=== PATIENT | female | born 1945 | race African-American/Black ===

== ENCOUNTER 2025-02-17 10:22 | Outpatient (REF) | payer SELFPAY ==
[2025-02-17 11:39] LABS: Anion Gap 14 (12-20); Blood Urea Nitrogen 35 mg/dL (9-16); Calcium 9.9 mg/dL (8.4-10.2); Carbon Dioxide 25 mmol/L (22-29); Chloride 106 mmol/L (96-108); Estimated Glomerular Filt Rate 29; Glucose Random 139 mg/dL (60-115); Potassium 4.1 mmol/L (3.3-5.1); Sodium 141 mmol/L (135-145)
[2025-02-17 11:55] LABS: TSH reflex Free T4 1.59 uIU/mL (0.32-4.0)
[2025-02-17 12:13] LABS: Folate 10.4 ng/mL (> or = 4.0); Vitamin B12 616 pg/mL (200-900)
--- OUTSIDE RECORDS SUMMARY | 2025-02-17 12:14 | XMS_ITS | Clinical Summary ---
Author Organization [facility] Address [address] [place] [address] Phone Care Team Providers Care Cissp Name Role Phone Linnea Guerrero MD Primary Care Provider [phone] Allergies Active Allergy Reactions Criticality Noted Date Comments Flu Vac 2015 (65 Up)-Mf59c(Pf) 10/05 Lisinopril Unknown 10/05/2024 Metoprolol Shortness of breath High 10/05/2024 Penicillins Hives,Rash Medium 10/03/2024 Medications famotidine (PEPCID) 20 mg tablet Take 1 tablet (20 mg total) by mouth 1 (one) time each day. 25 tablet 024 2024 Active Additional Information Patient taking differently:20 mg oralDaily PRN, heartburn, Reported on 12/24/2024 albuterol HFA (PROAIR HFA ; PROVENTIL HFA ; VENTOLIN HFA) 90 mcg/actuation inhaler Inhale 2 puffs by mouth every 6 (six) hours if needed for wheezing. Active aspirin 81 mg EC tablet Take 1 tablet (81 mg total) by mouth 1 (one) time each day. Active cholecalciferol (VITAMIN D-3) 50 mcg (2,000 unit) capsule Take 1 capsule (2,000 Units total) by mouth 1 (one) time each day. Active felodipine (PLENDIL) 5 mg 24 hr tablet Take 1 tablet (5 mg total) by mouth 1 (one) time each day. Active glipiZIDE (GLUCOTROL XL) 5 mg 24 hr tablet Take 1 tablet (5 mg total) by mouth 1 (one) time each day with breakfast. Active rosuvastatin (CRESTOR) 20 mg tablet Take 1 tablet (20 mg total) by mouth 1 (one) time each day. Active colchicine (MITIGARE) 0.6 mg capsule capsuleIndicati ons:Chronic gout of foot, unspecified cause, unspecified laterality Take 1 capsule (0.6 mg total) by mouth 1 (one) time each day if needed (gout flare). 30 capsule 1 Active losartan (COZAAR) 100 mg tabletIndicatio ns:Primary hypertension Take 1 tablet (100 mg total) by mouth 1 (one) time each day. 90 tablet 1 025 Active hydroCHLOROthia zide (HYDRODIURIL) 25 mg tabletIndicatio ns:Primary hypertension Take 1 tablet (25 mg total) by mouth 1 (one) time each day. 90 tablet 1 025 Active cranberry extract (Cranberry Concentrate) 500 mg capsule Take 500 mg by mouth 1 (one) time each day. Active mv, min #36-iron,carbon yl-FA (Geritol Complete) 16 mg iron- 0.38 mg tablet Take by mouth 1 (one) time each day. Active cyanocobalamin (VITAMIN B-12) 500 mcg tablet Take 1 tablet (500 mcg total) by mouth 1 (one) time each day. 024 2024 Discontinued atenoloL (TENORMIN) 50 mg tablet Take 1 tablet (50 mg total) by mouth 1 (one) time each day. 90 tablet 3 025 2024 Discontinued(S top Taking at Discharge) UNABLE TO FINDIndications :arthrits pain 800 mg 1 (one) time each day. Med Name: Acetaminophen 400mg two tablets daily 2024 Discontinued(S top Taking at Discharge) Active Problems Problem Noted Date Diagnosed Date Chest pain 01/23/2025 Right sided weakness 12/24/2024 Morbid obesity with BMI of 4 0.0-44.9, adult ([facility] V24, [facility] V28) 10/13/2024 Abdominal pain 10/05/2024 Osteoarthritis of both knees 07/21/2024 Vitamin D deficiency 12/11/2023 Rash 11/26/2019 Microalbuminuria 07/11/2019 Aortic atherosclerosis ([facility] V24) 07/11/2019 Diverticulosis 07/11/2019 Gout 07/11/2019 CKD (chronic kidney disease) stage 3, GFR 30-59 ml/min ([facility] V24, 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 ([facility] V24, [facility] V28) 05/20/2018 GERD (gastroesophageal reflux disease) 8 Hyperlipidemia 05/20/2018 Hypertension 05/20/2018 Tubular adenoma 05/20/2018 Type 2 diabetes mellitus wit h cataract ([facility] V24, [facility] V28) 05/20/2018 Cataract 04/01/2018 Allergic rhinitis 09/11/2017 Nephrolithiasis 05/09/2017 Osteoarthritis 05/10/2016 Overview (10/13/2024): Thoracic & Lumbar Spine, Elbow Internal hemorrhoids 09/07/2014 Encounters Date Type Department Care Team Description 01/23/2025 12:40 PM EDT - 01/24/2025 2:26 PM EDT Hospital Encounter [facility] [address] [place] [address] Toby Barnett MD Flores, Carlos M, MD Bell, Alistair A, MD Kela, Kashyap Devendrabhai, MD Chest pain, unspecified type (Primary Dx) Discharge Disposition: Home-Health Care [facility] 01/13/2025 Telephone Internal Medicine - [place] [address] [place] [address] Rita Blanca MD Referral (Fax requesting an insurance referral - endocrinology) 12/24/2024 7:44 AM EST - 12/25/2024 11:58 AM EST Hospital Encounter [facility] [address] [place] [id number] Rom Fuentes DO Sondhi, Vikram, MD Alam, Aroosa, MD Right sided weakness (Primary Dx); Vertigo; Primary hypertension; Aortic atherosclerosis ([facility] V24) Discharge Disposition: Home or Self Care 12/23/2024 9:45 AM EST Office Visit Internal Medicine - [place] [address] [place] [phone] Ayesha Aaron PA Type 2 diabetes mellitus with stage 3a chronic kidney disease, without long-term current use of insulin ([facility] V24, [facility] V28) (Primary Dx); Primary hypertension; Pure hypercholesterolemia; Obesity (BMI 30-39.9); Chronic gout of foot, unspecified cause, unspecified laterality; Memory disturbance 11/27/2024 6:58 AM EST - 11/27/2024 11:59 PM EST Hospital Encounter [facility] Ultrasound [address] [place] [phone] Personal history of urinary (tract) infections Discharge Disposition: Home or Self Care from Last 3 Months Surgical History Surgery Date Site/Laterality Comments TOTAL KNEE ARTHROPLASTY Bilateral PROCEDURE: HISTORICAL TOTAL KNEE REPLACE; COMMENT: right 2001, [facility] [place] [facility] 2003 PROCEDURE: HISTORICAL COLONOSCOPY; COMMENT: Normal Medical History Medical History Date Comments Allergic rhinitis 09/11/2017 DX:Allergic rh initis Cataract 04/01/2018 DX:Cataract 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 V24, [facility] V28) 05/20/2018 DX:Chronic obst ructive airway disease with asthma (HCC) CKD (chronic kidney disease) stage 3, GFR 30-59 ml/min ([facility] V24, [facility] V28) 09/17/2018 DX:CKD (chronic kidney disea se) stage 3, GFR 30-59 ml/min ([facility]) GERD (gastroesophageal reflux disease) 8 DX:GERD (gastroesophageal reflux disease) Hyperlipidemia 05/20/2018 DX:Hyperlipidemi a Hypertension 05/20/2018 DX:Hypertension Internal hemorrhoids 09/07/2014 DX:Internal hemorrhoids Nephrolithiasis 05/09/2017 DX:Nephrolithias is S/P knee replacement 09/17/2018 DX:S/P knee replacement Tubular adenoma 05/20/2018 DX:Tubular adeno ma Type 2 diabetes mellitus wit h cataract ([facility] V24, [facility] V28) 05/20/2018 DX:Type 2 diabetes mellitus with cataract (HCC) Type 2 diabetes mellitus wit h renal manifestations ([facility] V24, [facility] V28) 09/17/2018 DX:Type 2 diabetes mellitus with renal manifestations ([facility]) Gout DX:Gout Microalbuminuria 07/11/2019 DX:Microalbumin uria Aortic atherosclerosis ([facility] V24) 07/11/2019 DX:Aortic atherosclerosis ([facility]) Diverticulosis 07/11/2019 DX:Diverticulosi s Osteoarthritis 05/10/2016 DX:Osteoarthriti s; COMMENT: Thoracic & Lumbar Spine, Elbow Morbid obesity with BMI of 4 0.0-44.9, adult ([facility] V24, [facility] V28) DX:Morbid obesity wit h BMI of 40.0-44.9, adult ([facility]) Vitamin D deficiency DX:Vitamin D deficiency Family History Medical History Relation Name Comments Coronary artery disease Mother Relation Name Status Comments Father Mother Social History Tobacco Use Types Packs/Day Years Used Date Smoking Tobacco: Former Cigarettes Smokeless Tobacco: Never Alcohol Use Standard Drinks/Week Comments No 0 (1 standard drink = 0.6 oz pur e alcohol) Housing Instability Answer Date Recorde d Are you worried that in the next 2 months you may not have stable housing? Patient declined 12/25/2024 Food Access & Nutrition Answer Date Rec orded Do you have access to a vari ety of food including fruits and vegetables? Patient declined 12/25/2024 Health Literacy Answer Date Recorded How often do you need to hav e someone help you when you read instructions, pamphlets, or other written material from your doctor or pharmacy? Patient declined 12/25/2024 Caregiver: How often do you need to have someone help you when you read instructions, pamphlets, or other written material from your doctor or pharmacy? Not on file 025 Financial Risk Answer Date Recorded How hard is it for you to pa y for the very basics like food, housing, medical care, and air conditioning / heating? Somewhat hard 12/25/2024 Transportation Answer Date Recorded Has the lack of transportati on kept you from meetings, work, or from getting things needed for daily living? Patient declined 12/25/2024 Has the lack of transportati on kept you from medical appointments or from getting medications? Patient declined 12/25/2024 Social Isolation Answer Date Recorded How often do you feel lonely or isolated from those around you? Patient declined 12/25/2024 Food Risk Answer Date Recorded Within the past 12 months we worried whether our food would run out before we got money to buy more. Never true 12/25/2024 Within the past 12 months th e food we bought just didn't last and we didn't have money to get more. Never true 12/25/2024 Dependent Care Answer Date Recorded Do you need help finding or paying for care for your loved ones. For example, child monitor or elderly care for an older adult? Patient declined 12/25/2024 Education Answer Date Recorded Do you think completing more education or training, like finishing a GED, going to college, or learning a trade, would be helpful for you? Patient declined 12/25/2024 Employment and Income Answer Date Recor ded During the last four weeks, have you been actively looking for work? Patient declined 12/25/2024 Living Situation Answer Date Recorded What is your living situation? 0 12/25/2024 Interpersonal Safety Answer Date Record ed Physical Abuse 01/24/2025 Verbal Abuse 01/24/2025 Comments Unknown Sex and Gender Information Value Date Recorded Sex Assigned at Female 09/15/2024 2:07 PM EST Legal Sex Female 8:02 PM EST Gender Identity Female 09/15/2024 2:07 PM EST Sexual Orientation Straight 09/15/2024 2: 07 PM EST Obstetrics History Last Filed Vital Signs Vital Sign Reading Time Taken Comments Blood Pressure 146/54 01/24/2025 11:18 AM EDT Pulse 57 01/24/2025 11:18 AM EDT Temperature 36.8 ??C (98.3 ??F) 01/24/2025 11:18 AM E DT Respiratory Rate 14 01/24/2025 11:18 AM EDT Oxygen Saturation 100% 01/24/2025 11:18 AM EDT Inhaled Oxygen Concentration - - Weight 99.8 kg (220 lb) 01/23/2025 11:10 AM EDT Height 162.6 cm (5' 4 ) 01/23/2025 11:10 AM EDT Body Mass Index 37.76 01/23/2025 11:10 AM EDT Plan of Treatment Upcoming Encounters Date Type Department Care Team (Late st Contact Info) Description 02/25/2025 8:30 AM EDT Office Visit Internal Medicine - [facility] [address], [place] [phone] Linnea Guerrero MD [address], [place] Health Maintenance Due Date Last Done Comments Diabetes: Annual Foot Exam 1955 Diabetes: Annual Retina Eye Exam 1955 DTaP,Tdap,and Td Vaccines (1 - Tdap) 1963 Pneumococcal Vaccine: 50+ Years (1 of 2 - PCV) 1963 Zoster Vaccines (1 of 2) 1994 RSV Immunization Adult Patients (1 - 1-dose 75+ series) 2019 Osteoporosis Screening (Bone Density Screening) 09/23/2022 COVID-19 Vaccine ( season) 2024 12/31/2021, 07/15/2021, 06/24/2021 Diabetes: Annual Urine Albumin-Creatinine Ratio (uACR) 12/07/2024 12/07/2023 Influenza Vaccine (Season Ended) 2025 Diabetes: Blood Sugar Control Test (HGBA1C) 06/26/2025 12/24/2024, 06/10/2024, 06/10/2024 Depression Screening 08/22/2025 08/22/2024 Medicare Annual Wellness Visit 08/22/2025 08/22/2024 Social Influencers of Health Screening 12/25/2025 12/25/2024 Diabetes: Annual GFR (Glomerular Filtration Rate) 01/24/2026 01/24/2025, 01/23/2025, 12/25/2024, Additional history exists Falls Risk Assessment 01/24/2026 01/24/2025, 08/22/ 024 Hypertension/CHF/CAD Annual BMP Blood Test 01/24/2026 01/24/2025, 01/23/2025, 12/25/2024, Additional history exists Cholesterol Screening (Lipid Panel) 12/24/2029 12/24/2024, 12/07/2023 HIB Vaccines Aged Out No longer eligi ble based on patient's age to complete this topic HPV Vaccines Aged Out No longer eligi ble based on patient's age to complete this topic Hepatitis A Vaccines Aged Out No long er eligible based on patient's age to complete this topic Hepatitis B Vaccines Aged Out No long er eligible based on patient's age to complete this topic IPV Vaccines Aged Out No longer eligi ble based on patient's age to complete this topic MMR Vaccines Aged Out No longer eligi ble based on patient's age to complete this topic Meningococcal ACWY Vaccine Aged Out N o longer eligible based on patient's age to complete this topic Meningococcal B Vaccine Aged Out No l onger eligible based on patient's age to complete this topic RSV Immunization Patients Under 20 months Aged Out No longer eligible based on patient's age to complete this topic Varicella Vaccines Aged Out No longer eligible based on patient's age to complete this topic Procedures Procedure Name Priority Date/Time Associated Diagnosis Comments ECG ANNOTATED 01/26/2025 POCT GLUCOSE BLOOD Routine 01/24/2025 11 :19 AM EDT POCT GLUCOSE BLOOD Routine 01/24/2025 7: 55 AM EDT CBC WITH AUTO DIFFERENTIAL Routine 01/24/2025 5:26 AM EDT CBC AND DIFFERENTIAL Routine 01/24/2025 5:26 AM EDT MAGNESIUM Routine 01/24/2025 5:26 AM EDT BASIC METABOLIC PANEL Routine 01/24/2025 5:26 AM EDT POCT GLUCOSE BLOOD Routine 01/23/2025 9: 49 PM EDT POCT GLUCOSE BLOOD Routine 01/23/2025 6: 11 PM EDT POCT GLUCOSE BLOOD Routine 01/23/2025 5: 24 PM EDT ECG 12-LEAD STAT 01/23/2025 1:05 PM EDT TROPONIN I HIGH SENSITIVITY STAT 01/23/2025 1:04 PM EDT XR CHEST 2 VIEWS STAT 01/23/2025 12:0 0 PM EDT CBC WITH AUTO DIFFERENTIAL STAT 01/23/2025 11:28 AM EDT B-TYPE NATRIURETIC PEPTIDE STAT 01/23/2025 11:28 AM EDT MAGNESIUM STAT 01/23/2025 11:28 AM EDT LIPASE STAT 01/23/2025 11:28 AM EDT COMPREHENSIVE METABOLIC PANEL STAT 01/23/2025 11:28 AM EDT CBC AND DIFFERENTIAL STAT 01/23/2025 11:28 AM EDT TROPONIN I HIGH SENSITIVITY STAT 01/23/2025 11:28 AM EDT ECG 12-LEAD STAT 01/23/2025 10:56 AM EDT ECG OUTSIDE 01/23/2025 ECG OUTSIDE 01/23/2025 EXTERNAL XRAY REPORT 01/23/2025 ECG ANNOTATED 12/29/2024 TRANSTHORACIC ECHOCARDIOGRAM (TTE) COMPLETE W/ CONTRAST Routine 12/25/2024 9:10 AM EST Right sided weakness Primary hypertension Aortic atherosclerosis (CMS/HCC V24) POCT GLUCOSE BLOOD Routine 12/25/2024 8: 23 AM EST BASIC METABOLIC PANEL Routine 12/25/2024 5:48 AM EST COMPLETE BLOOD COUNT Routine 12/25/2024 5:48 AM EST POCT GLUCOSE BLOOD Routine 12/24/2024 9: 23 PM EST POCT GLUCOSE BLOOD Routine 12/24/2024 5: 18 PM EST MR BRAIN WO CONTRAST Routine 12/24/2024 1:05 PM EST LIPID PANEL WITH REFLEX TO DIRECT LDL Routine 12/24/2024 9:58 AM EST HEMOGLOBIN A1C Routine 12/24/2024 9:58 AM EST XR CHEST 1 VIEW STAT 12/24/2024 9:20 AM EST POC GLUCOSE STAT 12/24/2024 8:13 AM EST POCT GLUCOSE BLOOD Routine 12/24/2024 8: 11 AM EST CBC WITH AUTO DIFFERENTIAL STAT 12/24/2024 8:08 AM EST ACTIVATED PARTIAL THROMBOPLASTIN TIME STAT 12/24/2024 8:08 AM EST PROTHROMBIN TIME WITH INR STAT 12/24/2024 8:08 AM EST BASIC METABOLIC PANEL STAT 12/24/2024 8:08 AM EST CBC AND DIFFERENTIAL STAT 12/24/2024 8:08 AM EST ECG 12-LEAD STAT 12/24/2024 8:[address] ANGIO HEAD/NECK STROKE WO AND/OR W CONTRAST STAT 12/24/2024 7:[address] HEAD STROKE WO CONTRAST STAT 12/24/2024 7:58 AM EST US RETROPERITONEAL COMPLETE Routine 11/27/2024 7:59 AM EST Personal history of urinary (tract) infections HM DEPRESSION SCREENING Routine 08/22/2024 FALLS RISK ASSESSMENT Routine 08/22/2024 URINE ALBUMIN CREATININE RATIO Routine 12/07/2023 from Last 3 Months or Most Recently Relevant to Health Maintenance Results * ECG-Annotated (01/26/2025) Only the most recent of2 resultswithin the time period is included. us Provider Onbase MD ECG ORDERABLES Final Result * POCT Glucose, blood (01/24/2025 11:19 AM EDT) Only the most recent of9 resultswithin the time period is included. [facility] Glucose POCT 90 70 - 100 mg/dL 01/24/2025 11:19 AM EDT [facility] Blood Capillary blood specimen / Unknown 01/24/2025 11:19 AM EDT 01/24/2025 11:20 AM EDT Arun Meraz MD LAB POINT O F CARE TEST DOCKED DEVICE UNSOLICITED RESULTS Final Result [facility] [address] [place] [address], [place] [phone] * (ABNORMAL) CBC auto differential (01/24/2025 5:26 AM EDT) Only the most recent of3 resultswithin the time period is included. [facility] WBC 5.5 4.8 - 10.8 K/mcL LAB HEMETOLOGY METHOD 01/24/2025 6:50 AM EDT [facility] RBC 4.10 3.80 - 4.80 M/mcL LAB HEMETOLOGY METHOD 01/24/2025 6:50 AM EDT [facility] Hemoglobin 11.0(L) 11.5 - 16.0 g/dL LAB HEMETOLOGY METHOD 01/24/2025 6:50 AM EDT [facility] Hematocrit 35.5 35.0 - 47.0 % LAB HEMETOLOGY METHOD 01/24/2025 6:50 AM T [facility] MCV 86.0 79.0 - 98.0 FL LAB HEMETOLOGY METHOD 01/24/2025 6:50 AM [facility] MCH 26.6(L) 27.0 - 32.0 pcg LAB HEMETOLOGY METHOD 01/24/2025 6:50 AM T [facility] MCHC 31.0(L) 32.0 - 37.0 g/dL LAB HEMETOLOGY METHOD 01/24/2025 6:50 AM [facility] RDW 17.9(H) 11.0 - 15.0 % LAB HEMETOLOGY METHOD 01/24/2025 6:50 AM [facility] Platelets 270 130 - 400 K/mcL LAB HEMETOLOGY METHOD 01/24/2025 6:50 AM [facility] MPV 9.8 7.0 - 11.0 FL LAB HEMETOLOGY METHOD 01/24/2025 6:50 AM [facility] NRBC 0.0 <1.0 % LAB HEMETOLOGY METHOD 01/24/2025 6:50 AM [facility] NRBC Absolute 0.00 <0.10 K/mcL LAB HEMETOLOGY METHOD 01/24/2025 6:50 AM [facility] Neutrophils Relative 65.8 % LAB HEMETOLOGY METHOD 01/24/2025 6:50 AM [facility] Lymphocytes Relative 22.1 % LAB HEMETOLOGY METHOD 01/24/2025 6:50 AM [facility] Monocytes Relative 8.9 % LAB HEMETOLOGY METHOD 01/24/2025 6:50 AM [facility] Eosinophils Relative 2.6 % LAB HEMETOLOGY METHOD 01/24/2025 6:50 AM EDT [facility] Basophils Relative 0.4 % LAB HEMETOLOGY METHOD 01/24/2025 6:50 AM EDT [facility] Immature Granulocytes Relative 0.2 % LAB HEMETOLOGY METHOD 01/24/2025 6:50 AM EDT [facility] Neutrophils Absolute 3.61 1.50 - 7.00 K/mcL LAB HEMETOLOGY METHOD 01/24/2025 6:50 AM EDT [facility] Lymphocytes Absolute 1.21 1.00 - 5.00 K/mcL LAB HEMETOLOGY METHOD 01/24/2025 6:50 AM EDT [facility] Monocytes Absolute 0.49 0.20 - 1.00 K/mcL LAB HEMETOLOGY METHOD 01/24/2025 6:50 AM EDT [facility] Eosinophils Absolute 0.14 0.00 - 0.50 K/mcL LAB HEMETOLOGY METHOD 01/24/2025 6:50 AM EDT [facility] Basophils Absolute 0.02 0.00 - 0.20 K/mcL LAB HEMETOLOGY METHOD 01/24/2025 6:50 AM EDT [facility] Immature Granulocytes Absolute 0.01 0.00 - 0.03 K/mcL LAB HEMETOLOGY METHOD 01/24/2025 6:50 AM EDT [facility] Blood Venous blood specimen / Unknown Venipuncture / Unknown 01/24/2025 5:26 AM EDT 01/24/2025 6:16 AM EDT us Rock Junior MD LAB BLOOD ORDERABLES Final Re sult [facility] [address] [place] [address], * Magnesium (01/24/2025 5:26 AM EDT) Only the most recent of2 resultswithin the time period is included. Magnesium 2.1 1.9 - 2.6 mg/dL LAB CHEMISTRY METHOD 01/24/2025 7:05 AM [facility] Blood Venous blood specimen / Unknown Venipuncture / Unknown 01/24/2025 5:26 AM EDT 01/24/2025 6:16 AM EDT Rock Junior MD LAB BLOOD ORDERABLES Final Re sult [facility] [address] [place] [address], * (ABNORMAL) Basic metabolic panel (01/24/2025 5:26 AM EDT) Only the most recent of3 resultswithin the time period is included. Pathologist [facility] Sodium 140 133 - 145 mmol/L LAB CHEMISTRY METHOD 01/24/2025 7:05 AM [facility] Potassium 4.1 3.5 - 5.5 mmol/L LAB CHEMISTRY METHOD 01/24/2025 7:05 AM [facility] Chloride 104 96 - 110 mmol/L LAB CHEMISTRY METHOD 01/24/2025 7:05 AM [facility] CO2 28 21 - 32 mmol/L LAB CHEMISTRY METHOD 01/24/2025 7:05 AM [facility] Anion Gap 8 3 - 11 LAB CHEMISTRY METHOD 01/24/2025 7:05 AM [facility] Glucose 69(L) 70 - 100 mg/dL LAB CHEMISTRY METHOD 01/24/2025 7:05 AM [facility] BUN 29(H) 5 - 25 mg/dL LAB CHEMISTRY METHOD 01/24/2025 7:05 AM [facility] Creatinine 1.22(H) 0.50 - 1.10 mg/dL LAB CHEMISTRY METHOD 01/24/2025 7:05 AM EDT [facility] eGFR 45(L) >=60 mL/min/1. 73m2 LAB CHEMISTRY METHOD 01/24/2025 7:05 AM EDT [facility] Comment:Calculation based on the??Chronic Kidney Disease Epidemiology Collaboration (CKD-EPI) equation refit??without adjustment for race. BUN/Creatinine Ratio 23.8 LAB CHEMISTRY METHOD 01/24/2025 7:05 AM EDT [facility] Calcium 9.6 8.5 - 10.5 mg/dL LAB CHEMISTRY METHOD 01/24/2025 7:05 AM EDT [facility] Blood Venous blood specimen / Unknown Venipuncture / Unknown 01/24/2025 5:26 AM EDT 01/24/2025 6:16 AM EDT Rock Junior MD LAB BLOOD ORDERABLES Final Re sult [facility] [address] [place] [address], [place] [phone] * ECG 12 lead (01/23/2025 1:05 PM EDT) Only the most recent of3 resultswithin the time period is included. Ventricular Rate ECG 43 BPM G[facility] Atrial Rate 43 BPM GEM[facility] P-R Interval 150 ms GEMUSE QRS Duration 90 ms GEMUSE Q-T Interval 462 ms GEMUSE QTc 390 ms GEMUSE P Wave [place] 36 degrees GEMUSE R [place] 17 degrees GEMUSE T [place] 18 degrees GEMUSE ECG Interpretation Marked sinus bradycardia Abnormal ECG When compared with ECG of 23-JAN-2025 10:56, (unconfirmed) No significant change was found Confirmed by ELLE GARCIA ([id number]) on 01/25/2025 9:40:21 AM GEMUSE 01/23/2025 1:05 PM EDT 01/25/2025 9:40 AM EDT us Toby Barnett MD ECG ORDERABLES Final Result Performing Organization Address City/[facility] [address]/ZIP Co de Phone Number GEMUSE * Troponin I high sensitivity (01/23/2025 1:04 PM EDT) Only the most recent of2 resultswithin the time period is included. High Sensitivity Troponin I 32 <=54 ng/L LAB CHEMISTRY METHOD 01/23/2025 1:58 PM EDT [facility] Blood Venous blood specimen / Unknown Venipuncture / Unknown 01/23/2025 1:04 PM EDT 01/23/2025 1:27 PM EDT Narrative [facility] - 01/23/2025 1:58 PM EDT High levels of biotin in samples may falsely decrease hsTroponin values. ??Use caution when interpreting hsTroponin results in patients taking biotin who exhibit renal impairment (eGFR <60) or in patients taking more than 20 mg/day of biotin. Toby Barnett MD LAB BLOOD ORDERABLES Final Resu lt Performing Organization Address [facility] Street/[facility] Co de Phone Number [facility] [address] [place] [address], [place] [phone] * XR Chest 2 Views (01/23/2025 12:00 PM EDT) Anatomical Region Laterality Modality Body Radiographic Jacinta ging 01/23/2025 12:1 9 PM EDT Impressions 01/23/2025 12:20 PM EDT No acute cardiopulmonary findings. -------- FINAL REPORT -------- Dictated By: Calin Jamil Dictated Date: 01/23/2025 12:19 ET Assigned Physician: Calin Jamil Reviewed and Electronically Signed By: Calin Jamil Signed Date: 01/23/2025 12:20 ET Workstation ID: [id number] Transcribed By: Self Edit Transcribed Date: 01/23/2025 12:19 ET Narrative 01/23/2025 12:20 PM EDT PROCEDURE: PA and lateral radiographs of the chest. HISTORY: chest pain. COMPARISON: 12/24/2024. FINDINGS: Small round density projected over the upper right lung, which could represent a calcified granuloma or a bone island in an overlying rib. ??Lungs otherwise clear. ??Mild cardiomegaly. ??Atherosclerotic calcification of the aorta. ??No pulmonary edema, pleural effusion, or pneumothorax. ??Degenerative changes of the spine and shoulders. Procedure Note Calin Jamil MD - 01/23/2025 PROCEDURE: PA and lateral radiographs of the chest. HISTORY: chest pain. COMPARISON: 12/24/2024. FINDINGS: Small round density projected over the upper right lung, which couldrepresent a calcified granuloma or a bone island in an overlying rib.Lungs otherwise clear. Mild cardiomegaly. Atherosclerotic calcificationof the aorta. No pulmonary edema, pleural effusion, or pneumothorax.Degenerative changes of the spine and shoulders. IMPRESSION: No acute cardiopulmonary findings. -------- FINAL REPORT -------- Dictated By: Calin Jamil Dictated Date: 01/23/2025 12:19 ET Assigned Physician: Calin Jamil Reviewed and Electronically Signed By: Calin Jamil Signed Date: 01/23/2025 12:20 ET Workstation ID: [id number] Transcribed By: Self Edit Transcribed Date: 01/23/2025 12:19 ET Toby Barnett MD IMG XR PROCEDURES Final Result * B-type natriuretic peptide (01/23/2025 11:28 AM EDT) BNP 56 <=100 pcg/mL LAB CHEMISTRY METHOD 01/23/2025 12:37 PM EDT [facility] Blood Venous blood specimen / Unknown Venipuncture / Unknown 01/23/2025 11:28 AM EDT 01/23/2025 11:44 AM EDT Toby Barnett MD LAB BLOOD ORDERABLES Final Resu lt [facility] [address] [place] [address], [place] [phone] * Lipase (01/23/2025 11:28 AM EDT) [facility] Lipase 66 13 - 75 unit/L LAB CHEMISTRY METHOD 01/23/2025 12:33 PM [facility] Blood Venous blood specimen / Unknown Venipuncture / Unknown 01/23/2025 11:28 AM EDT 01/23/2025 11:44 AM EDT us Toby Barnett MD LAB BLOOD ORDERABLES Final Resu lt [facility] [address] [place] [address], [place] [phone] * (ABNORMAL) Comprehensive metabolic panel (01/23/2025 11:28 AM EDT) [facility] Sodium 140 133 - 145 mmol/L LAB CHEMISTRY METHOD 01/23/2025 12:34 PM [facility] Potassium 4.1 3.5 - 5.5 mmol/L LAB CHEMISTRY METHOD 01/23/2025 12:34 PM [facility] Chloride 107 96 - 110 mmol/L LAB CHEMISTRY METHOD 01/23/2025 12:34 PM [facility] CO2 26 21 - 32 mmol/L LAB CHEMISTRY METHOD 01/23/2025 12:34 PM [facility] Anion Gap 7 3 - 11 LAB CHEMISTRY METHOD 01/23/2025 12:34 PM [facility] Glucose 72 70 - 100 mg/dL LAB CHEMISTRY METHOD 01/23/2025 12:34 PM [facility] BUN 35(H) 5 - 25 mg/dL LAB CHEMISTRY METHOD 01/23/2025 12:34 PM [facility] Creatinine 1.41(H) 0.50 - 1.10 mg/dL LAB CHEMISTRY METHOD 01/23/2025 12:34 PM [facility] eGFR 38(L) >=60 mL/min/1. 73m2 LAB CHEMISTRY METHOD 01/23/2025 12:34 PM [facility] Comment:Calculation based on the??Chronic Kidney Disease Epidemiology Collaboration (CKD-EPI) equation refit??without adjustment for race. BUN/Creatinine Ratio 24.8 LAB CHEMISTRY METHOD 01/23/2025 12:34 PM [facility] Calcium 9.8 8.5 - 10.5 mg/dL LAB CHEMISTRY METHOD 01/23/2025 12:34 PM [facility] AST (SGOT) 15 10 - 42 unit/L LAB CHEMISTRY METHOD 01/23/2025 12:34 PM [facility] ALT (SGPT) 18 10 - 60 unit/L LAB CHEMISTRY METHOD 01/23/2025 12:34 PM [facility] Alkaline Phosphatase 60 42 - 121 unit/L LAB CHEMISTRY METHOD 01/23/2025 12:34 PM [facility] Total Protein 6.7 6.0 - 8.0 g/dL LAB CHEMISTRY METHOD 01/23/2025 12:34 PM [facility] Albumin 3.6 3.2 - 5.0 g/dL LAB CHEMISTRY METHOD 01/23/2025 12:34 PM [facility] Total Bilirubin 0.2 0.0 - 1.4 mg/dL LAB CHEMISTRY METHOD 01/23/2025 12:34 PM [facility] Blood Venous blood specimen / Unknown Venipuncture / Unknown 01/23/2025 11:28 AM EDT 01/23/2025 11:44 AM EDT us Toby Barnett MD LAB BLOOD ORDERABLES Final Resu lt [facility] [address] [place] [address], [place] [phone] * ECG-Outside (01/23/2025) Only the most recent of2 resultswithin the time period is included. Provider [facility] ECG ORDERABLES Final Re sult * External Xray Report (01/23/2025) Anatomical Region Laterality Modality Radiographic Jacinta ging Provider [facility] IMG XR PROCEDURES Final Result * (ABNORMAL) TRANSTHORACIC ECHOCARDIOGRAM (TTE) COMPLETE W/ CONTRAST (12/25/2024 9:10 AM EST) Left Atrium Minor [place] 5.6 cm CV PACS Left Atrium Major [place]aine 5.4 cm CV PACS LA Area Sys (A2C) 19 cm2 CV PACS LA Area Sys (A4C) 21 cm2 CV PACS LA Volume (BP) 56 mL CV PACS RA Area 12.3 cm2 CV PACS RA 2D Volume 29 mL CV PACS AV Mean Gradient 12 mmHg CV PACS Ao VTI 53.0 cm CV PACS AV Peak Gui 2.5 m/s CV PACS AV Peak Gradient 24 mmHg CV PACS AV Area Continuity Equation 1.8 cm2 CV PACS AV Area Peak Velocity 1.8 cm2 CV PACS Aortic Sinus Valsalva 2.8 cm CV PACS Ascending Aorta 3.3 cm CV PACS IVSD 1.2(A) 0.6 - 0.9 cm CV PACS LVIDD 4.2 3.8 - 5.2 cm CV PACS LVIDS 2.8 2.2 - 3.5 cm CV PACS LVOT Diameter 2.0 cm CV PACS LVOT Mean Gui 0.9 m/s CV PACS LVOT Mean Grad 4 mmHg CV PACS LVOT Peak VTI 30.9 cm CV PACS LVOT Peak Gui 1.4 m/s CV PACS LVOT Peak Gradient 8 mmHg CV PACS LVPWD 1.3(A) 0.6 - 0.9 cm CV PACS MV E' Tissue Velocity Lateral 9 cm/s CV PACS MV E' Tissue Velocity Septal 4 cm/s CV PACS LVOT Area 3.1 cm2 CV PACS LVOT Stroke Volume 97 mL CV PACS E Wave Deceleration Time 299(A) 119 - 242 ms CV PACS MV Peak A Gui 1.33 m/s CV PACS MV Peak E Gui 0.92 m/s CV PACS PV Acceleration Time 106 ms CV PACS E/E' Ratio Septal 23 CV PACS E/E' Ratio Averaged 17 CV PACS LVOT Stroke Index 48 mL/m2 CV PACS Relative Wall Thickness ratio 0.62 CV PACS LVOT:AV VTI Index 0.58 CV PACS FS 33 % CV PACS LV Mass 2D 189 g CV PACS Ascending Aorta Index 1.62 cm/m2 CV PACS LVOT flow 283 mL/s CV PACS RA 2D Volume Index 14 mL/m2 CV PACS YU Index (VTI) 0.90 cm2/m2 CV PACS YU Index (Pk Gui) 0.88 cm2/m2 CV PACS LVIDD Index 2.06 cm/m2 CV PACS LVIDS Index 1.37 cm/m2 CV PACS AV Velocity Ratio 0.56 CV PACS E/A Ratio 0.7 CV PACS E/E' Ratio Lateral 10 CV PACS LA Volume Index (BP) 27 mL/m2 CV PACS LV Mass Index 2D 93 g/m2 CV PACS BSA 2.13 m2 CV PACS Anatomical Region Laterality Modality Ultrasound Narrative 12/25/2024 11:32 AM EST ?Left ventricle cavity size is normal. Left ventricle mild hypertrophy.No regional LV wall motion abnormalities noted.Left ventricular systolic function is in the normal range with an ejection fraction of 60-65%.Indeterminate diastolic function. ?Right ventricle cavity is normal. Right ventricular systolic function is normal. ?Aortic valve leaflets are mildly calcified.Aortic valve demonstrates mild stenosis. ??Trace aortic insufficiency ?Elevated left atrial filling pressure with evidence of diastolic dysfunction ?Trace mitral insufficiency trace aortic insufficiency Left Ventricle Left ventricle cavity size is normal. There is mild hypertrophy. Systolic function is normal with an ejection fraction of 60-65%. There are no regional LV wall motion abnormalities. Indeterminate diastolic function. Right Ventricle Right ventricle cavity appears normal. Systolic function is normal. Left Atrium Left atrium cavity size is normal. Right Atrium Right atrium cavity is normal. IVC/SVC Inferior vena cava structure is normal. Mitral Valve The leaflets are moderately thickened. There is moderate annular calcification. There is trace regurgitation. There is no evidence of mitral valve stenosis. Tricuspid Valve The leaflets exhibit normal excursion. There is no regurgitation or stenosis. Aortic Valve The leaflets are mildly calcified. There is no regurgitation. There is mild stenosis. Pulmonic Valve There is no regurgitation or stenosis. Ascending Aorta The aorta appears normal in size. Pericardium Pericardium appears normal. There is no pericardial effusion. Study Details Overall the study quality was technically difficult. Definity contrast was given to enhance imaging. Poly MCHUGH CV ECHO PROCEDURES Final Result * (ABNORMAL) Complete blood count (12/25/2024 5:48 AM EST) WBC 5.1 4.8 - 10.8 K/mcL LAB HEMETOLOGY METHOD 12/25/2024 7:[address] [facility] RBC 4.00 3.80 - 4.80 M/mcL LAB HEMETOLOGY METHOD 12/25/2024 7:[address] [facility] Hemoglobin 10.9(L) 11.5 - 16.0 g/dL LAB HEMETOLOGY METHOD 12/25/2024 7:[address] [facility] Hematocrit 34.2(L) 35.0 - 47.0 % LAB HEMETOLOGY METHOD 12/25/2024 7:[address] [facility] MCV 84.9 79.0 - 98.0 FL LAB HEMETOLOGY METHOD 12/25/2024 7:[address] [facility] MCH 27.0 27.0 - 32.0 pcg LAB HEMETOLOGY METHOD 12/25/2024 7:[address] [facility] MCHC 31.9(L) 32.0 - 37.0 g/dL LAB HEMETOLOGY METHOD 12/25/2024 7:[address] [facility] RDW 18.6(H) 11.0 - 15.0 % LAB HEMETOLOGY METHOD 12/25/2024 7:22 AM EST [facility] Platelets 315 130 - 400 K/mcL LAB HEMETOLOGY METHOD 12/25/2024 7:22 AM EST [facility] MPV 9.6 7.0 - 11.0 FL LAB HEMETOLOGY METHOD 12/25/2024 7:22 AM EST [facility] NRBC 0.0 <1.0 % LAB HEMETOLOGY METHOD 12/25/2024 7:22 AM EST [facility] NRBC Absolute 0.00 <0.10 K/mcL LAB HEMETOLOGY METHOD 12/25/2024 7:22 AM EST [facility] Blood Venous blood specimen / Unknown Venipuncture / Unknown 12/25/2024 5:48 AM EST 12/25/2024 7:00 AM EST us Poly [facility] LAB BLOOD ORDERABLES Final Resul t [facility] [address] [place] [address], [place] [phone] * MR Brain wo Contrast (12/24/2024 1:05 PM EST) Anatomical Region Laterality Modality Head and Neck Magnetic Resonan ce 12/24/2024 2:08 PM EST Impressions 12/24/2024 2:10 PM EST No acute infarct, mass, or intracranial hemorrhage. -------- FINAL REPORT -------- Dictated By: LIVAN LOUIS Dictated Date: 12/24/2024 14:08 ET Assigned Physician: LIVAN LOUIS Reviewed and Electronically Signed By: LIVAN LOUIS Signed Date: 12/24/2024 14:10 ET Workstation ID: [id number] Transcribed By: Self Edit Transcribed Date: 12/24/2024 14:08 ET Narrative 12/24/2024 2:10 PM EST PROCEDURE: Brain MRI INDICATION: Transient ischemic attack TECHNIQUE: Multiplanar, multisequence MRI of the brain Without contrast. COMPARISON: ??Same day head CT and CTA FINDINGS: No acute infarct, mass effect, or intracranial hemorrhage. Moderate chronic small vessel ischemic changes seen throughout the supratentorial and pontine white matter. Ventricles, sulci, and cisterns are normal in size and configuration. ??No hydrocephalus. Sella and foramen magnum are normal. Major intracranial arterial flow voids are normal. ??Intracranial arterial vasculature is better assessed on recent CTA. No abnormal intracranial susceptibility artifact. Sinuses and mastoid air cells are clear. Bilateral lens implants. ??Extracranial soft tissues and calvarium are normal. Procedure Note Livan Louis MD - 12/24/2024 PROCEDURE: Brain MRI INDICATION: Transient ischemic attack TECHNIQUE: Multiplanar, multisequence MRI of the brain Without contrast. COMPARISON: Same day head CT and CTA FINDINGS: No acute infarct, mass effect, or intracranial hemorrhage. Moderate chronic small vessel ischemic changes seen throughout thesupratentorial and pontine white matter. Ventricles, sulci, and cisterns are normal in size and configuration. Nohydrocephalus. Sella and foramen magnum are normal. Major intracranial arterial flow voids are normal. Intracranial arterialvasculature is better assessed on recent CTA. No abnormal intracranial susceptibility artifact. Sinuses and mastoid air cells are clear. Bilateral lens implants. Extracranial soft tissues and calvarium arenormal. IMPRESSION: No acute infarct, mass, or intracranial hemorrhage. -------- FINAL REPORT -------- Dictated By: LIVAN LOUIS Dictated Date: 12/24/2024 14:08 ET Assigned Physician: LIVAN LOUIS Reviewed and Electronically Signed By: LIVAN LOUIS Signed Date: 12/24/2024 14:10 ET Workstation ID: [id number] Transcribed By: Self Edit Transcribed Date: 12/24/2024 14:08 ET Anibal Sandoval MD [facility] MRI PROCEDURES Final Result * Lipid panel with reflex to direct LDL (12/24/2024 9:58 AM EST) [facility] Cholesterol 133 0 - 200 mg/dL LAB CHEMISTRY METHOD 12/24/2024 10:36 AM EST [facility] Triglycerides 113 0 - 150 mg/dL LAB CHEMISTRY METHOD 12/24/2024 10:36 AM EST [facility] HDL 51 >=40 mg/dL LAB CHEMISTRY METHOD 12/24/2024 10:[address] [facility] LDL Calculated 59 0 - 100 mg/dL LAB CHEMISTRY METHOD 12/24/2024 10:[address] [facility] VLDL Cholesterol Ant 22.6 mg/dL LAB CHEMISTRY METHOD 12/24/2024 10:[address] [facility] Non HDL Chol. (LDL+VLDL) 82 <145 mg/dL LAB CHEMISTRY METHOD 12/24/2024 10:[address] [facility] Chol/HDL Ratio 2.6 0.0 - 4.4 LAB CHEMISTRY METHOD 12/24/2024 10:[address] [facility] Blood Venous blood specimen / Unknown Venipuncture / Unknown 12/24/2024 9:58 AM EST 12/24/2024 10:11 AM EST us Anibal Sandoval MD LAB BLOOD ORDERABLES Final Resu lt [facility] [address] [place] [address], [place] [phone] * (ABNORMAL) Hemoglobin A1c (12/24/2024 9:58 AM EST) Hemoglobin A1C 6.7(H) <6.5 % LAB CHEMISTRY METHOD 12/24/2024 11:02 AM EST [facility] Mean Bld Glu Estim. 146 mg/dL LAB CHEMISTRY METHOD 12/24/2024 11:02 AM EST [facility] Blood Venous blood specimen / Unknown Venipuncture / Unknown 12/24/2024 9:58 AM EST 12/24/2024 10:11 AM EST us Anibal Sandoval MD LAB BLOOD ORDERABLES Final Resu lt [email or web address] [address] [place] [address], * XR Chest 1 View (12/24/2024 9:20 AM EST) Anatomical Region Laterality Modality Body Radiographic Jacinta ging 12/24/2024 9:25 AM EST Impressions 12/24/2024 9:38 AM EST FINDINGS/IMPRESSION: Elevated left diaphragm with left retrocardiac opacities, likely atelectasis. ??No pleural effusion or pneumothorax. ??Cardiac silhouette and bones are stable compared to the prior exam with advanced glenohumeral osteoarthritis noted bilaterally. -------- FINAL REPORT -------- Dictated By: LIVAN LOUIS Dictated Date: 12/24/2024 09:25 ET Assigned Physician: LIVAN LOUIS Reviewed and Electronically Signed By: LIVAN LOUIS Signed Date: 12/24/2024 09:38 ET Workstation ID: [id number] Transcribed By: Self Edit Transcribed Date: 12/24/2024 09:25 ET Narrative 12/24/2024 9:38 AM EST XR CHEST 1 VIEW INDICATION: ??Dizziness TECHNIQUE: XR CHEST 1 VIEW COMPARISON: 10/03/2024 Procedure Note Livan Louis MD - 12/24/2024 XR CHEST 1 VIEW INDICATION: Dizziness TECHNIQUE: XR CHEST 1 VIEW COMPARISON: 10/03/2024 IMPRESSION: FINDINGS/IMPRESSION: Elevated left diaphragm with left retrocardiacopacities, likely atelectasis. No pleural effusion or pneumothorax.Cardiac silhouette and bones are stable compared to the prior exam withadvanced glenohumeral osteoarthritis noted bilaterally. -------- FINAL REPORT -------- Dictated By: LIVAN LOUIS Dictated Date: 12/24/2024 09:25 ET Assigned Physician: LIVAN LOUIS Reviewed and Electronically Signed By: LIVAN LOUIS Signed Date: 12/24/2024 09:38 ET Workstation ID: [id number] Transcribed By: Self Edit Transcribed Date: 12/24/2024 09:25 ET us Rom Fuentes DO IMG XR PROCEDURES Final Res ult * POC glucose manually resulted (12/24/2024 8:13 AM EST) Glucose POC 86 70 - 110 mg/dL Blood Capillary blood specimen / Unknown 12/24/2024 8:13 AM EST us Rom Fuentes DO POINT OF CARE TEST ENTER/ED IT ORDERABLES Final Result * Activated partial thromboplastin time (12/24/2024 8:08 AM EST) aPTT 29.7 24.1 - 39.3 sec LAB COAGULATION METHOD 12/24/2024 8:40 AM EST [facility] Blood Venous blood specimen / Unknown Venipuncture / Unknown 12/24/2024 8:08 AM EST 12/24/2024 8:26 AM EST us Rom Fuentes DO LAB BLOOD ORDERABLES Final Result [facility] [address] [place] [address], [place] [phone] * Prothrombin time with INR (12/24/2024 8:08 AM EST) Protime 12.4 10.6 - 13.9 sec LAB COAGULATION METHOD 12/24/2024 8:40 AM EST [facility] INR 1.0 LAB COAGULATION METHOD 12/24/2024 8:40 AM EST [facility] Blood Venous blood specimen / Unknown Venipuncture / Unknown 12/24/2024 8:08 AM EST 12/24/2024 8:26 AM EST us Rom Fuentes DO LAB BLOOD ORDERABLES Final Result [facility] ([facility] [[email or web address] [address] [place] [address], * CT Head Stroke wo Contrast (12/24/2024 7:58 AM EST) Anatomical Region Laterality Modality Head and Neck Computed Tomogra phy 12/24/2024 8:02 AM EST Impressions 12/24/2024 8:07 AM EST No acute intracranial abnormality Findings communicated to the ordering provider via secure text at the time of final report signing -------- FINAL REPORT -------- Dictated By: LIVAN LOUIS Dictated Date: 12/24/2024 08:02 ET Assigned Physician: LIVAN LOUIS Reviewed and Electronically Signed By: LIVAN LOUIS Signed Date: 12/24/2024 08:07 ET Workstation ID: [id number] Transcribed By: Self Edit Transcribed Date: 12/24/2024 08:02 ET Narrative 12/24/2024 8:07 AM EST PROCEDURE: HEAD CT INDICATION: Dizziness TECHNIQUE: CT of the head without intravenous contrast. Multiplanar reformats. The examination was performed utilizing dose reduction techniques. Total DLP 717 COMPARISON: ??No priors available. FINDINGS: ?? No acute territorial infarct, mass effect, or intracranial hemorrhage. Mild scattered periventricular and subcortical white matter hypodensities are most likely related to chronic small vessel ischemic change. Ventricles, sulci, and cisterns are normal in size and configuration. No hydrocephalus. Visualized paranasal sinuses and mastoid air cells are clear. ??Bilateral lens implants. No scalp hematoma or skull fracture. Procedure Note Livan Louis MD - 12/24/2024 PROCEDURE: HEAD CT INDICATION: Dizziness TECHNIQUE: CT of the head without intravenous contrast. Multiplanarreformats. The examination was performed utilizing dose reductiontechniques. Total DLP 717 COMPARISON: No priors available. FINDINGS: No acute territorial infarct, mass effect, or intracranial hemorrhage. Mild scattered periventricular and subcortical white matter hypodensitiesare most likely related to chronic small vessel ischemic change. Ventricles, sulci, and cisterns are normal in size and configuration. Nohydrocephalus. Visualized paranasal sinuses and mastoid air cells are clear. Bilaterallens implants. No scalp hematoma or skull fracture. IMPRESSION: No acute intracranial abnormality Findings communicated to the ordering provider via secure text at the timeof final report signing -------- FINAL REPORT -------- Dictated By: LIVAN LOUIS Dictated Date: 12/24/2024 08:02 ET Assigned Physician: LIVAN LOUIS Reviewed and Electronically Signed By: LIVAN LOUIS Signed Date: 12/24/2024 08:07 ET Workstation ID: [id number] Transcribed By: Self Edit Transcribed Date: 12/24/2024 08:02 ET Rom Fuentes DO IMG CT PROCEDURES Final Res ult * CT Angio Head/Neck Stroke wo and/or w Contrast (12/24/2024 7:58 AM EST) Anatomical Region Laterality Modality Head and Neck Computed Tomogra phy 12/24/2024 8:11 AM EST Impressions 12/24/2024 8:30 AM EST Patent cervical and intracranial arterial vasculature -------- FINAL REPORT -------- Dictated By: LIVAN LOUIS Dictated Date: 12/24/2024 08:11 ET Assigned Physician: LIVAN LOUIS Reviewed and Electronically Signed By: LIVAN LOUIS Signed Date: 12/24/2024 08:30 ET Workstation ID: [id number] Transcribed By: Self Edit Transcribed Date: 12/24/2024 08:11 ET Narrative 12/24/2024 8:30 AM EST PROCEDURE: CTA head/neck INDICATION: Dizziness TECHNIQUE: CTA of the head and neck with intravenous contrast. Multiplanar reformats. The examination was performed utilizing dose reduction techniques.3-D or MIP images were produced with postprocessing on an independent computer workstation. ??90 cc [id number]-[id number] injected intravenously without complication. ??Total DLP 2696 COMPARISON: ??No priors available. FINDINGS: ?? CTA Neck: There is a left-sided aortic arch. Major branching arteries arising from the aortic arch are patent. Common carotid and internal carotid arteries are patent in the neck. Cervical vertebral arteries are patent. Beaded appearance of the high cervical internal carotid arteries may be due to fibromuscular dysplasia or atherosclerosis. ??No dissection. Visualized lung apices are clear. ??Multinodular goiter. ??Degenerative changes throughout the cervical spine. CTA Head: Intracranial portions of the internal carotid arteries are patent. M1 and A1 segments are patent. ??Distal middle cerebral and anterior cerebral arteries are patent. Vertebrobasilar system is patent. Superior cerebellar and posterior cerebral arteries are patent. Major dural venous sinuses opacify normally with contrast. No intracranial aneurysm or vascular malformation. Procedure Note Livan Louis MD - 12/24/2024 PROCEDURE: CTA head/neck INDICATION: Dizziness TECHNIQUE: CTA of the head and neck with intravenous contrast. Multiplanarreformats. The examination was performed utilizing dose reductiontechniques.3-D or MIP images were produced with postprocessing on anindepOntuitive computer workstation. 90 cc [id number]-[id number] injected intravenouslywithout complication. Total DLP 2696 COMPARISON: No priors available. FINDINGS: CTA Neck: There is a left-sided aortic arch. Major branching arteries arising from the aortic arch are patent. Commoncarotid and internal carotid arteries are patent in the neck. Cervicalvertebral arteries are patent. Beaded appearance of the high cervical internal carotid arteries may bedue to fibromuscular dysplasia or atherosclerosis. No dissection. Visualized lung apices are clear. Multinodular goiter. Degenerativechanges throughout the cervical spine. CTA Head: Intracranial portions of the internal carotid arteries are patent. M1 andA1 segments are patent. Distal middle cerebral and anterior cerebralarteries are patent. Vertebrobasilar system is patent. Superior cerebellar and posteriorcerebral arteries are patent. Major dural venous sinuses opacify normally with contrast. No intracranial aneurysm or vascular malformation. IMPRESSION: Patent cervical and intracranial arterial vasculature -------- FINAL REPORT -------- Dictated By: LIVAN LOUIS Dictated Date: 12/24/2024 08:11 ET Assigned Physician: LIVAN LOUIS Reviewed and Electronically Signed By: LIVAN LOUIS Signed Date: 12/24/2024 08:30 ET Workstation ID: [id number] Transcribed By: Self Edit Transcribed Date: 12/24/2024 08:11 ET us Rom Fuentes DO IMG CT PROCEDURES Final Res ult * US Retroperitoneal Complete (11/27/2024 7:59 AM EST) Anatomical Region Laterality Modality Body Ultrasound 12/08/2024 9:39 AM EST Impressions 12/08/2024 9:45 AM EST Impression: 1. Left lower pole nonobstructing renal calculus, similar to the previous studies. 2. Right renal cyst. 3. No postvoid bladder residual. -------- FINAL REPORT -------- Dictated By: Sophia Camacho Dictated Date: 12/08/2024 09:39 ET Assigned Physician: Sophia Camacho Reviewed and Electronically Signed By: Sophia Camacho Signed Date: 12/08/2024 09:45 ET Workstation ID: [id number] Transcribed By: Self Edit Transcribed Date: 12/08/2024 09:39 ET Narrative 12/08/2024 9:45 AM EST History: Urinary tract infection. Kidney stones. Comparison: Renal ultrasound 10/05/24, CT abdomen/pelvis 10/03/24, abdominal MRI 10/06/24 Findings: Real-time imaging of the kidneys and urinary bladder was performed. The right kidney measures 11.6 cm in length, with normal cortical thickness. There is no hydronephrosis. A 5.2 x 5.7 x 5.0 cm simple cyst arises from the interpolar aspect of the kidney, unchanged. The left kidney is small, measuring 8.2 cm in length, with diffuse parenchymal thinning. There is no hydronephrosis. An 11 mm calculus is seen in the lower pole, also visible on the previous studies. The known cyst arising from the medial interpolar aspect of the left kidney, best seen on the 10/06/24 MRI, is not visualized. A known left adrenal adenoma is seen adjacent to the upper pole of the left kidney, measuring 2.9 x 2.5 x 3.1 cm, reported previously. The urinary bladder is only partially distended, with prevoid volume of 116 cc. Both ureteral jets are demonstrated. No bladder mass is seen. There is no postvoid bladder residual. Procedure Note Sophia Camacho MD - 12/08/2024 History: Urinary tract infection. Kidney stones. Comparison: Renal ultrasound 10/05/24, CT abdomen/pelvis 10/03/24,abdominal MRI 10/06/24 Findings: Real-time imaging of the kidneys and urinary bladder was performed. The right kidney measures 11.6 cm in length, with normal corticalthickness. There is no hydronephrosis. A 5.2 x 5.7 x 5.0 cm simple cystarises from the interpolar aspect of the kidney, unchanged. The left kidney is small, measuring 8.2 cm in length, with diffuseparenchymal thinning. There is no hydronephrosis. An 11 mm calculus isseen in the lower pole, also visible on the previous studies. The knowncyst arising from the medial interpolar aspect of the left kidney, bestseen on the 10/06/24 MRI, is not visualized. A known left adrenal adenomais seen adjacent to the upper pole of the left kidney, measuring 2.9 x 2.5x 3.1 cm, reported previously. The urinary bladder is only partially distended, with prevoid volume of116 cc. Both ureteral jets are demonstrated. No bladder mass is seen.There is no postvoid bladder residual. IMPRESSION: Impression: 1. Left lower pole nonobstructing renal calculus, similar to the previousstudies. 2. Right renal cyst. 3. No postvoid bladder residual. -------- FINAL REPORT -------- Dictated By: Sophia Camacoh Dictated Date: 12/08/2024 09:39 ET Assigned Physician: Sophia Camacho Reviewed and Electronically Signed By: Sophia Camacho Signed Date: 12/08/2024 09:45 ET Workstation ID: [id number] Transcribed By: Self Edit Transcribed Date: 12/08/2024 09:39 ET David Eason MD [facility] US PROCEDURES Fi nal Result * Falls Risk Assessment (08/22/2024) Pathologist [facility] [place] Risk Assessment abstracted Historical Provider HEALTH MAINTENANCE Final Result * Depression Screening (08/22/2024) Depression Screening abstracted us Historical Provider HEALTH MAINTENANCE Final Result * Urine Albumin Creatinine Ratio (12/07/2023) Urine Albumin Creatinine Ratio abstracted us Historical Provider HEALTH MAINTENANCE Final Result from Last 3 Months or Most Recently Relevant to Health Maintenance Insurance [employer] Advance Directives * Full Code - Confirmed (Latest Code Status on File) Date Activated Date Inactivated Comments 01/23/2025 8:26 PM 01/24/2025 4:36 PM This code stat us was ascertained in the following way: Code status discussion: discussion with patient To update the patient's code status, place a code status order. Do not modify or discontinue any currently active code status orders. * Full Code - Default Date Activated Date Inactivated Comments 01/23/2025 4:52 PM 01/23/2025 8:26 PM This is order is used when code status has not been discussed with the patient, or code status is otherwise unknown/unconfirmed To update the patient's code status, place a code status order. Do not modify or discontinue any currently active code status orders. * Full Code - Default Date Activated Date Inactivated Comments 12/24/2024 9:25 AM 12/25/2024 2:08 PM This is order is used when code status has not been discussed with the patient, or code status is otherwise unknown/unconfirmed To update the patient's code status, place a code status order. Do not modify or discontinue any currently active code status orders. * Full Code - Default Date Activated Date Inactivated Comments 10/05/2024 1:51 PM 10/07/2024 2:48 PM This is or bee is used when code status has not been discussed with the patient, or code status is otherwise unknown/unconfirmed To update the patient's code status, place a code status order. Do not modify or discontinue any currently active code status orders. Care Teams Cissp Relationship Specialty Start Date End Date Linnea Guerrero MD [address] [place] [address] PCP - General Internal Medicine 02/04/25
--- OUTSIDE RECORDS SUMMARY | 2025-02-17 12:14 | XMS_ITS ---
Continuity of Care Document (CCD) Created on: February 17, 2025 Ekaterina Sood External Reference #: [id number] : [id number] Sex: Female Author Organization [facility] [address] [place] [address] Phone [phone] Care Team Providers Care Manager State Name Role Phone Martin Silva MD Care Team Information Receiv er [phone] Ayesha Aaron PA-C Care Team Informatio n Hand Flesher [phone] Problems Active Problems Provider Date Vitamin D deficiency Dominik Coffey M.D. Ons et: 01/27/2025 Diverticular disease Dominik Coffey M.D. Ons et: 01/27/2025 Gout Dominik Coffey M.D. Onset: 0 01/27/2025 Chronic kidney disease stage 3 Dominik Coffey M.D. Onset: 01/27/2025 Type 2 diabetes mellitus Dominik Coffey M.D. Onset: 01/27/2025 Essential hypertension Dominik Coffey M.D. O nset: 01/27/2025 Hyperlipidemia Dominik Coffey M.D. Onset: 0 01/27/2025 Allergic rhinitis oDminik Coffey M.D. Onset: 01/27/2025 Social History Type Date Description Comments Sex Unknown Medications Active Medications SIG Qnty Indications Ordering Provider Date Onetouch UltraStrips Use To Check Blood Sugar Twice Daily Ramírez Funez MD Onetouch Delica Plus Lancets Extra Fine 33GPlus 33G Misc Use To Check Blood Sugar Twice Daily Ramírez Funez MD Colchicine0.6mg Capsules Ayesha Aaron PA-C Jisyoxgmzpuxgzybqxe56t g Tablets Ayesha Aaron PA-C Losartan Kbascnetf420gq Tablets Ayesha Dailey PA-C Acetaminophen Extra [id number] Tablets Take 2 Tablets By Mouth Every 6 Hours as Needed For Mild Pain For Up To 10 Days Unknown Vlgzspghzw78ap Tablets Unknown Glipizide ER5mg Tablets ER 24HR Take 1 Tablet By Mouth With Breakfast Ramírez Funez MD Felodipine ER5mg Tablets ER 24HR Take 1 Tablet By Mouth Daily Ayesha Aaron PA-C Vital Signs Date Vital Result Comment 01/28/2025 9:41am Height 64 inches 5'4 Weight 219.50 lb BMI (Body Mass Index) 37.7 kg/m2 Medical Devices Description No Information Available Encounters Type Date Location Provider Dx Diagnosis Office Visit 01/28/2025 9:30a Main Office Dominik Coffey M.D. 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 Plan of Treatment Future Appointment(s):* 01/28/2026 8:30 am - Dominik Coffey M.D. 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 Created [address] [place] [address] [address] [place] [address] [phone]
--- OUTSIDE RECORDS SUMMARY | 2025-02-17 12:14 | XMS_ITS | Encounter Summary ---
Author Organization [facility] Address [address] [place] [address] Care Team Providers Care Cow Washer Name Role Phone Linnea Guerrero MD Primary Care Provider [phone] Encounter Details Date Type Department Care Team (Late st Contact Info) Description 09/11/2024 Lab Requisition [facility] - Main Lab [address] [facility] [place] [phone] David Eason MD [address] [address] Other abnormal findings in urine Social History Tobacco Use Types Packs/Day Years Used Date Smoking Tobacco: Former Cigarettes Smokeless Tobacco: Never Alcohol Use Standard Drinks/Week Comments No 0 (1 standard drink = 0.6 oz pur e alcohol) Comments Unknown Sex and Gender Information Value Date Recorded Sex Assigned at Female 09/15/2024 2:07 PM EST Legal Sex Female 8:02 PM EST Gender Identity Female 09/15/2024 2:07 PM EST Sexual Orientation Straight 09/15/2024 2: 07 PM EST documented as of this encounter Plan of Treatment Upcoming Encounters Date Type Department Care Team (Late st Contact Info) Description 02/25/2025 8:30 AM EDT [facility] [address] [place] [phone] Linnea Guerrero MD [address] [place], [place] documented as of this encounter Procedures Procedure Name Priority Date/Time Associated Diagnosis Comments BACTERIAL IDENTIFICATION AND SUSCEPTIBILITY, AEROBIC Routine 09/10/2024 12:00 AM EST Other abnormal findings in urine documented in this encounter Results * Bacterial identification and susceptibility, aerobic (09/10/2024 12:00 AM EST) Culture, Bacterial ID and Sensitivity Mixed urogenital katrina, no uropathogens present. Suggest repeat specimen, if clinically indicated. 09/11/2024 11:13 AM EST [facility] Other Urine specimen from urethra / Unknown 09/10/2024 09/11/2024 10:38 AM EST David Eason MD LAB MICROBIOLOGY - G ENERAL ORDERABLES Final Result [facility] [address] [place] [address], documented in this encounter Visit Diagnoses Diagnosis Other abnormal findings in urine documented in this encounter Additional Health Concerns Infection Onset Date Last Indicated Resolved Time Respiratory Rule-Out 10/04/2024 10/04/2024 024 8:07 AM EST Respiratory Rule-Out 10/22/2024 10/22/2024 025 9:05 AM EST Enterovirus 10/22/2024 10/22/2024 11/15/2024 7:04 PM EST Rhinovirus 10/22/2024 10/22/2024 11/15/2024 7:04 PM EST documented as of this encounter Care Teams Cow Washer Relationship Specialty Start Date End Date Linnea Guerrero MD [address] [facility] [place] PCP - General Internal Medicine 02/04/25 documented as of this encounter
--- OUTSIDE RECORDS SUMMARY | 2025-02-17 12:14 | XMS_ITS | Clinical Summary ---
Author Organization [facility] Address [address] [place] [address] Phone Care Team Providers Care Rafter Cutting Machine Operator Name Role Phone Ramírez Funez Primary Care Provider [phone] Allergies Active Allergy Reactions Criticality Noted Date Comments Influenza Virus Vaccine 09/25/2024 Lisinopril 09/25/2024 Metoprolol 09/25/2024 Penicillin G Rash Low 09/29/2022 Medications losartan (COZAAR) 100 MG tablet Take 100 mg by mouth 1 (one) time each day Active Lancets (OneTouch Delica Plus Awvtxr65Z) misc USE TO CHECK BLOOD SUGAR TWICE DAILY 4 Active OneTouch Ultra test strip USE TO CHECK BLOOD SUGAR TWICE DAILY 4 Active Colchicine 0.6 MG capsule 4 Active dexamethasone (DECADRON) 4 MG tablet Take 4 mg by mouth in the morning and 4 mg at noon and 4 mg in the evening. 4 Active glipiZIDE (GLUCOTROL XL) 5 MG 24 hr tablet TAKE 1 TABLET BY MOUTH WITH BREAKFAST 4 Active rosuvastatin (CRESTOR) 20 MG tablet Take 20 mg by mouth 1 (one) time each day Active cyancobalamine (VITAMIN B-12) 500 MCG tablet Take 500 mcg by mouth 1 (one) time each day Active Vitamin D, Cholecalciferol , 50 MCG (2000 UT) capsule Take by mouth Acti ve hydroCHLOROthia zide 25 MG tablet Take 25 mg by mouth 1 (one) time each day Active Albuterol Sulfate, sensor, 108 (90 Base) MCG/ACT aerosol powder Inhale Activ e Ipratropium-Alb uterol (ALBUTEROL-IPRA TROPIUM IN) Inhale Active atenolol (TENORMIN) 50 MG tablet Take 50 mg by mouth 1 (one) time each day Active felodipine (PLENDIL) 5 MG 24 hr tablet Take 5 mg by mouth 1 (one) time each day Do not crush, chew, or split. Active Active Problems Problem Noted Date Diagnosed Date Essential (primary) hypertension 09/25/2024 Internal hemorrhoids 09/25/2024 Abdominal aortic atherosclerosis 09/25/2024 Hyperlipidemia 09/25/2024 Gout 09/25/2024 Bilateral earache 09/13/2023 Social History Tobacco Use Types Packs/Day Years Used Date Smoking Tobacco: Never Assessed Comments Unknown Sex and Gender Information Value Date Recorded Sex Assigned at Not on file Legal Sex Female 6:22 PM EDT Gender Identity Not on file Sexual Orientation Not on file Last Filed Vital Signs Vital Sign Reading Time Taken Comments Blood Pressure 140/64 09/25/2024 3:01 PM EST Pulse 70 09/25/2024 3:01 PM EST Temperature - - Respiratory Rate - - Oxygen Saturation - - Inhaled Oxygen Concentration - - Weight 108 kg (238 lb) 09/25/2024 3:01 PM EST Height - - Body Mass Index - - Plan of Treatment Health Maintenance Due Date Last Done Comments Pneumococcal Vaccine: 50+ Years (1 of 2 - PCV) 1964 Diabetes: Ophthalmology Exam 09/25/2024 Diabetes: Pedal Pulse Checked 09/25/2024 Diabetes: Sensory Foot Exam 09/25/2024 Diabetes: Visual Foot Exam 09/25/2024 Diabetes: Hemoglobin A1C 03/26/20252 025, 06/10/2024 Hepatitis B Vaccine Aged Out No longe r eligible based on patient's age to complete this topic Insurance [employer] Medicare Care Teams Rafter Cutting Machine Operator Relationship Specialty Start Date End Date Ramírez Funez [address] [place] [address] PCP - General 07/25/24
--- OUTSIDE RECORDS SUMMARY | 2025-02-17 12:14 | XMS_ITS | Encounter Summary ---
Author Organization [facility] Address [address] [place] [address] Care Team Providers Care Ore Dressing Engineer Name Role Phone Linnea Guerrero MD Primary Care Provider [phone] Reason for Referral * Consultation (Routine) - Closed Specialty Diagnoses / Procedures Referred By Ladi cortez Referred To Contact Endocrinology Diagnoses Type 2 diabetes mellitus with stage 3a chronic kidney disease, without long-term current use of insulin (CMS/HCC V24, CMS/HCC V28) Rita Blanca MD [address] [facility] [address] [place] [address] Phone: tel: fax: Dominik Coffey MD [address] [place] [address] [address] [place] [address] Phone: tel: fax: Referral ID Status Reason Start Date Expiration Date V isits Requested Visits Authorized [id number] Closed Specialty Services Required 01/15/2025 01/15/2026 6 6 Reason for Visit * Reason Onset Date Comments Referral 01/13/2025 Fax requesting a n insurance referral - endocrinology Encounter Details Date Type Department Care Team ([facility] st Contact Info) Description 01/13/2025 Telephone Internal Medicine - [place] [address] [facility] [address] [place] [address] Rita Blanca MD [address] [facility] [address] [place] [address] Referral (Fax requesting an insurance referral - endocrinology) Social History Tobacco Use Types Packs/Day Years [...] for your loved ones. For example, child care director or elderly care for an older adult? [...] PM EST documented as of this encounter Functional Status * Are you deaf or do you have serious difficulty hearing? Answer Date of Assessment Author No 10/03/2024 2:32 AM Jyoti Hernandez RN * Are you blind or do you have serious difficulty seeing, even when wearing glasses? Answer Date of Assessment Author No 10/03/2024 2:32 AM Jyoti Hernandez RN * Do you have serious difficulty walking or climbing stairs? Answer Date of Assessment Author No 10/03/2024 2:32 AM Jyoti Hernandez RN * Do you have serious difficulty dressing or bathing? Answer Date of Assessment Author No 10/03/2024 2:32 AM Jyoti Hernandez RN * Because of a physical, mental, or emotional condition, do you have serious difficulty doing errandsalone such as visiting the doctor? Answer Date of Assessment Author No 10/03/2024 2:32 AM Jyoti Hernandez RN documented as of this encounter Mental Status * Because of a physical, mental, or emotional condition, do you have serious difficulty concentrating, remembering, or making decisions? (5 years old or older) Answer Entry Date Author No 10/03/2024 2:32 AM Jyoti Hernandez RN documented in this encounter Progress Notes * Rita Blanca MD - 01/14/2025 11:14 PM EDT New ref placed * Latisha Edil - 01/13/2025 10:52 AM EDT Fax rec'd requesting an insurance referral Caller: Fax Office: [facility] Specialty: endocrinology Insurance: Kerri ID: [id number] Provider: Dominik Coffey DOS: 01/28/25 Visits: 6 Dx code: D35.02 Pls create an order with the above information so that I may process it through the pts insurance. Thank you IMPORTANT Pls copy and paste the above info into the order. Otherwise, it will not be processed as an ins referral documented in this encounter Plan of Treatment Upcoming Encounters Date Type Department Care Team (Late st Contact Info) Description 02/25/2025 8:30 AM EDT Office Visit Internal Medicine - [facility] [address] [place] [address] Linnea Guerrero MD [address] [place] [address] Scheduled Referrals Name Type Priority Associated Diagnoses Order Schedule Ambulatory referral to Endocrinology Outpatient Referral Routine Type 2 diabetes mellitus with stage 3a chronic kidney disease, without long-term current use of insulin (CMS/HCC V24, CMS/HCC V28) 1 Occurrences starting 01/14/2025 until 01/14/2026 documented as of this encounter Visit Diagnoses Diagnosis Type 2 diabetes mellitus with stage 3a chronic kidney disease, without long-term current use of insulin (CMS/HCC V24, CMS/HCC V28)- Primary documented in this encounter Care Teams Ore Dressing Engineer Relationship Specialty Start Date End Date Linnea Guerrero MD [address] [place] [address] PCP - General Internal Medicine 02/04/25 documented as of this encounter
== END 2025-02-17 10:23 | disposition home or self-care (01) ==
LOC: HO.LAB 10:22
PROVIDERS: PCP Internal Medicine; Visit Provider Psychiatry & Neurology Neurology
DX: G31.84 Mild cognitive impairment of uncertain or unknown etiology (principal)
CPT/HCPCS: 36415; 80048; 82607; 82746; 84443

== ENCOUNTER 2025-06-03 08:16 | Outpatient (AMB) | payer MEDICARE, SELFPAY ==
--- OUTSIDE RECORDS SUMMARY | 2025-06-03 08:22 | XMS_ITS | Encounter Summary ---
Author Organization [facility] Address [address] [place] [address] Care Team Providers Care Telephone Services Sales Representative Name Role Phone Linnea Guerrero MD Primary Care Provider [phone] Reason for Visit * Reason Onset Date Comments Referral 05/29/2025 Neurology Insura nce Referral Encounter Details Date Type Department Care Team (Late st Contact Info) Description 05/29/2025 Telephone Internal Medicine - [facility] [address] [place], [place] [phone] Linnea Guerrero MD [address] [place], [place] Referral (Neurology Insurance Referral) Social History Tobacco Use Types Packs/Day Years [...] for your loved ones. For example, child psychiatrist or elderly care for an older adult? [...] Physical Abuse 01/24/2025 Verbal Abuse 01/24/2025 Comments No Sex and Gender Information Value Date Recorded Sex Assigned at Female 09/15/2024 2:07 PM EST Legal Sex Female 8:02 PM EST Gender Identity Female 09/15/2024 2:07 PM EST Sexual Orientation Straight 09/15/2024 2: 07 PM EST documented as of this encounter Functional Status * Are you deaf or do you have serious difficulty hearing? Answer Date of Assessment Author No 10/03/2024 2:32 AM EST Jyoti Ayon RN * Are you blind or do you have serious difficulty seeing, even when wearing glasses? Answer Date of Assessment Author No 01/23/2025 1:57 PM EDT Edda Dougherty RN * Do you have serious difficulty walking or climbing stairs? Answer Date of Assessment Author Yes 01/23/2025 1:57 PM EDT Edda Dougherty RN * Do you have serious difficulty dressing or bathing? Answer Date of Assessment Author Yes 01/23/2025 1:57 PM EDT Edda Dougherty RN * Because of a physical, mental, or emotional condition, do you have serious difficulty doing errandsalone such as visiting the doctor? Answer Date of Assessment Author Yes 01/23/2025 1:57 PM Edda Becerril RN documented as of this encounter Mental Status * Because of a physical, mental, or emotional condition, do you have serious difficulty concentrating, remembering, or making decisions? (5 years old or older) Answer Entry Date Author Yes 01/23/2025 1:57 PM Edda Becerril RN documented in this encounter Progress Notes * Latisha Edil - 05/29/2025 1:25 PM EDT What insurance does the patient have today? [facility]or: [email or web address]/@[email or web address]@ Referrals cannot be processed if the insurance is not accurate. If the insurance listed above is NO BILLING INFORMATION FOUND FOR THIS ENCOUNTER then the patients correct insurance must be obtainedand registered in [facility] or their referral can not be processed. Name of person calling to request this referral? Fax -[facility] Neurology & Sleep Referred To Provider (Include first and last name): Jennifer Armijo NPI (if known): [id number] Order/Specialty requested neurology Chief Complaint (Note: This is not a body part or a procedure): G31.84 MCI Has the patient seen provider for this problem/Dx before? Referred To Provider Address: Referred To Provider Referred To Provider Does patient have an appointment scheduled?: yes If yes, what is the date of the appointment?: 06/03/25 Is this a retro request? no Number of visits requested: 6 Is this appointment related to: MVA or worker compensation? no documented in this encounter Plan of Treatment Upcoming Encounters Date Type Department Care Team (Late st Contact Info) Description 06/05/2025 1:30 PM EDT Appointment Bone Density - [address] [phone] 09/01/2025 8:30 AM EST Office Visit Internal Medicine - [address] [phone] Andreina Brown, MARIA LUISA [address] [place], [place] 11/10/2025 1:30 PM EST Consult Nephrology - [address] [phone] Arya Arteaga MD [address] [facility] [address] [place] [address] documented as of this encounter Visit Diagnoses Diagnosis Mild cognitive impairment- Primary Mild cognitive impairment, so stated documented in this encounter Care Teams Telephone Services Sales Representative Relationship Specialty Start Date End Date Linnea Guerrero MD [address] [place] [address] PCP - General Internal Medicine 02/04/25 documented as of this encounter
--- OUTSIDE RECORDS SUMMARY | 2025-06-03 08:22 | XMS_ITS | Continuity of Care Document ---
Author Organization [facility] [address] [facility] [address] [place] [address] Phone [phone] Care Team Providers Care Helper Shear Operator Name Role Phone Martin Silva MD Care Team Information Receiv er [phone] Ayesha Aaron PA-C Care Team Informatio n Talcer [phone] Problems Active Problems Provider Date Vitamin D [...] Coffey M.D. Onset: 0 01/27/2025 Allergic rhinitis Dominik Coffey M.D. Onset: 01/27/2025 Social History Type Date Description Comments Sex Female Sex Unknown Medications Active Medications SIG Qnty Indications Ordering Provider Date Onetouch UltraStrips Use To Check Blood Sugar Twice Daily Ramírez Funez MD Onetouch Delica Plus Lancets Extra Fine 33GPlus 33G Misc Use To Check Blood Sugar Twice Daily Ramírez Funez MD Colchicine0.6mg Capsules Ayesha Aaron PA-C Llsjeeaifpjytqqpjkr82m g Tablets Ayesha Aaron PA-C Losartan Wihbnbutn678oc Tablets Ayesha Dailey PA-C Acetaminophen Extra Ttuywflv026so Tablets Take 2 Tablets By Mouth Every 6 Hours as Needed For Mild Pain For Up To 10 Days Unknown Qphfnzuofs61vf Tablets Unknown Glipizide ER5mg Tablets ER 24HR Take 1 Tablet By Mouth With Breakfast Ramírez Funez MD Felodipine ER5mg Tablets ER 24HR Take 1 Tablet By Mouth Daily Ayesha Aaron PA-C Vital Signs Date Vital Result Comment 01/28/2025 9:41am Height 64 inches 5'4 Weight 219.50 lb BMI (Body Mass Index) 37.7 kg/m2 Results Test Acquired Date Facility Test Result H/L Range N ote Aldosterone LCMS Serum 02/25/2025 [facility] [address] [address] [phone] Aldosterone LCMS Serum <pending> Renin Activity Plasma 02/25/[address] [address] Renin Activity Plasma <pending> Medical Devices Description No Information Available Encounters Type Date Location Provider Dx Diagnosis Office Visit 01/28/2025 9:30a Main Office Dominik Coffey M.D. 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 Plan of Treatment Future Appointment(s):* 01/28/2026 8:30 am - Dominik Coffey M.D. 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 Created [address] [place] [address] Drive [address] [place] [address] [phone]
--- OUTSIDE RECORDS SUMMARY | 2025-06-03 08:22 | XMS_ITS | Clinical Summary ---
Author Organization [facility] Address [address] [place] [address] Phone Care Team Providers Care Scarfing Machine Operator Name Role Phone Ramírez Funez Primary Care Provider [phone] Allergies Active Allergy Reactions Criticality Noted Date Comments Influenza Virus Vaccine 09/25/2024 Lisinopril 09/25/2024 Metoprolol 09/25/2024 Penicillin G Rash Low 09/29/2022 Medications losartan (COZAAR) 100 MG tablet Take 100 mg by mouth 1 (one) time each day Active Lancets (OneTouch Delica Plus Bsnraz50C) misc USE TO CHECK BLOOD SUGAR TWICE [...] topic Insurance [employer] Medicare Care Teams Scarfing Machine Operator Relationship Specialty Start Date End Date Ramírez Funez [address] [place] [address] PCP - General 07/25/24
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
== END 2025-06-03 09:05 | disposition home or self-care (01) ==
LOC: HO.HSM 08:17
PROVIDERS: PCP Internal Medicine; Visit Provider Registered Nurse
DX: G30.9 Alzheimer's disease, unspecified (principal); F02.83 Dementia in other diseases classified elsewhere, unspecified severity, with mood disturbance; G47.00 Insomnia, unspecified
CPT/HCPCS: 99214

== ENCOUNTER → 2025-06-03 08:16 | Outpatient (BNVA) | payer MEDICARE, SELFPAY | PROVIDERS: PCP Internal Medicine; Visit Provider Registered Nurse | DX: G30.9 Alzheimer's disease, unspecified (principal); F02.B3 Dementia in other diseases classified elsewhere, moderate, with mood disturbance; G47.00 Insomnia, unspecified | CPT/HCPCS: 99212 ==

== ENCOUNTER 2025-06-12 08:20 | Outpatient (REF) | payer MEDICARE, SELFPAY ==
--- NOTE | 2025-06-12 08:33 | EEG_ITS ---
Description: This is a routine waking EEG using the 10-20 electrode placement system. The waking background activity consists of low-voltage fast frequency seen diffusely intermixed with low-voltage posterior 9-10 hertz alpha frequency, and intermittent scattered theta frequencies over both hemispheres. Occasional sharp transient spike or seen in isolated forms over both temporal regions..? Photic stimulation is without activation.? Hyperventilation was omitted No focal, lateralizing or paroxysmal discharges are seen. Impression: This waking EEG is considered mildly abnormal due to scattered intermittent theta slowing and occasional sharp transient from the temporal regions. This correlates with mild cerebral dysfunction and some elements of cerebral irritability in the temporal regions. MTDD
--- OUTSIDE RECORDS SUMMARY | 2025-06-12 08:33 | XMS_ITS | Continuity of Care Document ---
Author Organization [facility] [address] [facility] [address] [place] [address] Phone [phone] Care Team Providers Care Television Anchor Name Role Phone Martin Silav MD Care Team Information Receiv er [phone] Ayesha Aaron PA-C Care Team Informatio n Analysis Or Research Safety Inspector [phone] Problems Active Problems Provider Date Vitamin D [...] Funez MD Colchicine0.6mg Capsules Ayesha Aaron PA-C Mazzyjnclegyqvumrka22r g Tablets Ayesha Aaron PA-C Losartan Hislmgnlt971rx Tablets Ayesha Dailey PA-C Acetaminophen Extra Lixxoend990mm Tablets Take 2 Tablets By Mouth Every 6 Hours as Needed For Mild Pain For Up To 10 Days Unknown Nwysdcgusq02by Tablets Unknown Glipizide ER5mg Tablets ER 24HR [...] Range N ote Aldosterone LCMS Serum 02/25/[address] [facility] [address] [address] Aldosterone LCMS Serum <pending> Renin Activity Plasma 02/25/[address] [address] Renin Activity Plasma <pending> Medical Devices Description [...] Referral Status Appt Dominik Ahn M.D. Created [address] [place] [address] Drive [address] [place] [address] [phone]
--- OUTSIDE RECORDS SUMMARY | 2025-06-12 08:34 | XMS_ITS | Encounter Summary ---
Author Organization [facility] Address [address] [place] [address] Care Team Providers Care Respiratory Tech Name Role Phone Linnea Guerrero MD Primary Care Provider [phone] Reason for Visit * Reason Onset Date Comments Referral 05/29/2025 Neurology Insura nce Referral Encounter Details Date Type Department Care Team (Late st Contact Info) Description 05/29/2025 Telephone Internal Medicine - [facility] [address] [place], [place] [phone] Linnea Guerrero MD [address] [place], [place] Referral (Neurology Insurance Referral) Social History [...] care for your loved ones. For example, teacher early childhood development or elderly care for an older adult? [...] of Assessment Author Yes 01/23/2025 1:57 PM EDEdda Croft RN documented as of this encounter Mental Status * Because of a physical, mental, or emotional condition, do you have serious difficulty concentrating, remembering, or making decisions? (5 years old or older) Answer Entry Date Author Yes 01/23/2025 1:57 PM EDT Edda Dougherty RN documented in this encounter Progress Notes * Azra Plunkett - 06/09/2025 9:39 AM EDT [facility] is calling back and checking the status of the referral order request. They need this ELLE. Patient has another appt scheduled for this week. Please pend and sign order. Thank you The Referral Relations Team * Latisha Solo - 05/29/2025 1:25 PM EDT What insurance does the patient have today? Payor: @[email or web address] Referrals cannot be processed if the insurance is not accurate. If the insurance listed above is NO BILLING INFORMATION FOUND FOR THIS ENCOUNTER then the patients correct insurance must be obtainedand registered in [facility] or their referral can not be processed. Name of person calling to request this referral? Fax -[facility] Referred To Provider (Include first and last name): Jennifer CRUZ (if known): [phone] Order/Specialty requested neurology Chief Complaint (Note: This [...] Care Team (Late st Contact Info) Description 09/01/2025 8:30 AM EST Office Visit Internal Medicine - [address] [phone] Andreina Brown NP [address] [place] [address] 11/10/2025 1:30 PM EST Consult Nephrology - [address] [phone] Arya Arteaga MD [address] [facility] [address] [place] [address] documented as of this encounter Visit Diagnoses Diagnosis Mild cognitive impairment- Primary Mild cognitive impairment, so stated documented in this encounter Care Teams Respiratory Tech Relationship Specialty Start Date End Date Linnea Guerrero MD [address] [place] [address] PCP - General Internal Medicine 02/04/25 documented as of this encounter
== END 2025-06-12 08:21 | disposition home or self-care (01) ==
LOC: HO.NEURO 08:20
PROVIDERS: PCP Internal Medicine; Visit Provider Psychiatry & Neurology Neurology
DX: G30.9 Alzheimer's disease, unspecified (principal); F02.83 Dementia in other diseases classified elsewhere, unspecified severity, with mood disturbance
CPT/HCPCS: 95816

== ENCOUNTER → 2025-06-12 08:33 | Outpatient (BNV) | payer MEDICARE, SELFPAY | PROVIDERS: PCP Internal Medicine; Visit Provider Psychiatry & Neurology Neurology | DX: G30.9 Alzheimer's disease, unspecified (principal); F02.83 Dementia in other diseases classified elsewhere, unspecified severity, with mood disturbance | CPT/HCPCS: 95816 ==

== ENCOUNTER 2025-09-07 08:01 | Outpatient (AMB) | payer MEDICARE, SELFPAY ==
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
[2025-09-07 08:56] VITALS: BP 144/64; PULSE 72
== END 2025-09-07 09:05 | disposition home or self-care (01) ==
LOC: HO.HSM 08:01
PROVIDERS: PCP Internal Medicine; Visit Provider Registered Nurse
DX: G30.9 Alzheimer's disease, unspecified (principal); F02.83 Dementia in other diseases classified elsewhere, unspecified severity, with mood disturbance; G47.00 Insomnia, unspecified
CPT/HCPCS: 99214

== ENCOUNTER → 2025-09-07 08:01 | Outpatient (BNVA) | payer MEDICARE, SELFPAY | PROVIDERS: PCP Internal Medicine; Visit Provider Registered Nurse | DX: G30.9 Alzheimer's disease, unspecified (principal); F02.83 Dementia in other diseases classified elsewhere, unspecified severity, with mood disturbance; G47.00 Insomnia, unspecified | CPT/HCPCS: 99212 ==